=== PATIENT | female | born 1980 | race Caucasian/White ===

== ENCOUNTER 2020-11-24 15:26 | Emergency (ER) | payer OTHER ==
[~2020-11-24] VITALS: Ht 157.5 cm; Wt 122.5 kg
[2020-11-24] MEDS ORDERED: CITALOPRAM HBR40 MG PO (16:05)
[2020-11-24 16:53] LABS: BILIRUBIN NEGATIVE (NEGATIVE); BLOOD 3+ Ery/uL (NEGATIVE); CLARITY CLEAR (CLEAR); COLOR YELLOW (YELLOW); GLUCOSE (U) NORMAL (NORMAL); LEUKOCYTES NEGATIVE Leu/uL (NEGATIVE); NITRITE NEGATIVE (NEGATIVE); PROTEIN NEGATIVE (NEGATIVE); SPECIFIC GRAVITY 1.015 (1.001-1.030); UROBILINOGEN 0.2 mg/dL (0.2-1.0); pH 6.5 (5.0-9.0)
[2020-11-24 16:56] LABS: HCG (URINE) SCREEN NEGATIVE (NEGATIVE)
[2020-11-24 16:59] LABS: BACTERIA TRACE; URINARY RBC RARE
[2020-11-24 18:53] LABS: BASOPHIL 0.6 % (0-2); EOSINOPHIL 1.2 % (0-5); HCT 35.8 % (37.0-47.0); HGB 11.2 g/dl (12.5-16.0); LYMPHOCYTE 36.3 % (15-48); MCH 27.8 pg (25.0-31.0); MCHC 31.3 g/dL (32.0-36.0); MCV 88.8 fL (78.0-100.0); NEUTROPHIL 54.7 % (41-80); NRBC 0; PLT 222 K/uL (150-400); RBC 4.03 M/uL (4.20-5.40); RDW 14.3 % (11.5-14.0); WBC 6.6 K/uL (4.0-10.5)
[2020-11-24 19:03] LABS: INR 0.98 (0.9-1.2); PROTHROMBIN TIME 12.4 SECONDS (11.8-13.4); PTT 27.5 SECONDS (24.4-34.7)
[2020-11-24 19:23] LABS: ALBUMIN 2.9 g/dL (3.4-5.0); BILIRUBIN - TOTAL 0.2 mg/dL (0.2-1.0); BUN/CREAT RATIO (CALC) 16.1 RATIO; CREATININE 0.87 mg/dL (0.51-0.95); MAGNESIUM 2.1 mg/dL (1.8-2.4); POTASSIUM 4.1 mmol/L (3.5-5.1); TOTAL PROTEIN 5.9 g/dL (6.4-8.2)
== END 2020-11-24 20:03 | disposition home or self-care (01) ==
LOC: FER 15:26
PROVIDERS: Emergency Medicine
DX: B34.9 Viral infection, unspecified (principal); Z20.822 Contact with and (suspected) exposure to COVID-19; Z91.09 Other allergy status, other than to drugs and biological substances
CPT/HCPCS: 36415; 71045; 80053; 81001; 83735; 84145; 84703; 85025; 85610; 85730; J7030; U0002

== ENCOUNTER 2021-04-03 13:48 | Emergency (ER) | payer OTHER ==
[~2021-04-03 13:48] MED LIST: CITALOPRAM HBR40 MG PO
[2021-04-03 15:10] LABS: INFLUENZA A NAA NEGATIVE (NEGATIVE)
[2021-04-03 15:15] LABS: CORONAVIRUS 2019 SARS-COV-2 POSITIVE (NEGATIVE)
== END 2021-04-03 15:40 | disposition home or self-care (01) ==
LOC: FER 13:48
PROVIDERS: Nurse Practitioner Family
DX: U07.1 COVID-19 (principal); Z91.048 Other nonmedicinal substance allergy status
CPT/HCPCS: 87880; 99283; U0002

== ENCOUNTER 2021-08-14 10:52 | Emergency (ER) | payer OTHER ==
[2021-08-14 15:56] LABS: BILIRUBIN NEGATIVE (NEGATIVE); BLOOD NEGATIVE Ery/uL (NEGATIVE); CLARITY CLEAR (CLEAR); COLOR YELLOW (YELLOW); GLUCOSE (U) NORMAL (NORMAL); LEUKOCYTES NEGATIVE Leu/uL (NEGATIVE); NITRITE NEGATIVE (NEGATIVE); PROTEIN NEGATIVE (NEGATIVE); UROBILINOGEN 0.2 mg/dL (0.2-1.0)
[2021-08-14] MEDS ORDERED: CYCLOBENZAPRINE10 MG PO (16:36)
[2021-08-14] MEDS ORDERED: MEDROL 4MG DOSEP4 MG PO (16:36)
== END 2021-08-14 16:53 | disposition home or self-care (01) ==
LOC: FER 10:52
PROVIDERS: Nurse Practitioner Family
DX: G89.29 Other chronic pain (principal); M54.50 Low back pain, unspecified; Z88.5 Allergy status to narcotic agent; Z28.310 Unvaccinated for COVID-19
CPT/HCPCS: 72128; 72131; 81003; 96372; J1100; J1885